=== PATIENT | female | born 1955 | race Caucasian/White ===

== ENCOUNTER 2017-04-24 13:35 | Day surgery (SDC) | payer BC ==
[~2017-04-24] VITALS: Ht 160 cm; Wt 92.4 kg
[2017-04-24 14:34] VITALS: Ht 160 cm; Wt 92.4 kg
[2017-04-24] MEDS ORDERED: LIDOCAINE 2% (SDV) 5 ML INJ ONE (14:39)
[2017-04-24] MEDS ORDERED: PHENYLephrine (100 MCG/ML) 5ML SYG ONE (14:39)
[2017-04-24] MEDS ORDERED: FENTAnyl 50 MCG/ML VIAL ONE (14:39)
[2017-04-24] MEDS ORDERED: PROPOFOL 20 ML ONE (14:39)
[2017-04-24] MEDS ORDERED: LANS15CA19 PO (14:44)
[2017-04-24] MEDS ORDERED: SIMV10TA PO (14:44)
[2017-04-24] MEDS ORDERED: LISI20TA11 PO (14:44)
[2017-04-24] MEDS ORDERED: ASPI-664 PO (14:44)
[2017-04-24 14:57] VITALS: BP 149/73; PULSE 76; RESP 10
[2017-04-24 16:02] VITALS: BP 167/79; RESP 20
--- NOTE | 2017-05-22 08:22 | GILP ---
DATE OF PROCEDURE: 05/11/2017 PROCEDURE PERFORMED: 1. Esophagogastroduodenoscopy and biopsy. 2. Colonoscopy and polypectomy. SURGEON: Og Tony MD PREOP DIAGNOSES: 1. Gastroesophageal reflux disease. 2. Screening colonoscopy. POSTOP DIAGNOSES: 1. Gastroesophageal reflux disease. 2. Gastritis. 3. Gastric mucosal biopsies were taken for H. pylori tests. 4. Colonoscopy all the way to the cecum. 5. Sigmoid colon polyp was removed using the snare and electrocautery. 6. Cecal polyp was removed using the biopsy forceps. 7. Internal hemorrhoids. INDICATIONS FOR THE PROCEDURES: Ms. Nora Guerra is a 62-year- old female patient who has chronic heartburn not responding to therapy. The patient also needed a screening colonoscopy. The procedures and possible complications were well explained to the patient. The patient understood and consented to the procedures. DESCRIPTION OF PROCEDURE: The gastroscope was carefully introduced into the esophagus under direct vision it was advanced to the stomach, through the pylorus into the duodenal bulb and descending duodenum. Findings esophagus: The patient had gastroesophageal reflux disease but the esophageal mucosa was normal. Stomach: The patient had gastritis. Gastric mucosal biopsies were taken for H pylori test. Duodenum was normal. The colonoscope was carefully introduced in the rectum. Under direct vision and advanced all the way to the cecum. Findings: The patient was noted to have a sigmoid colon polyp and it was removed using the snare and electrocautery. The patient also had a small cecal polyp and it was removed using the biopsy forceps. The patient was noted to have internal hemorrhoids. She tolerated the procedures very well. There was no complication from the procedures. At the end of procedures she was awake with stable vital signs and she was discharged home to the care of her family. IMPRESSION: 1. Gastritis with erosions. 2. Gastroesophageal reflux disease. 3. Gastric mucosal biopsies were taken for Helicobacter pylori test. 4. Colonoscopy all the way to the cecum. 5. Sigmoid colon polyp removed using the snare and electrocautery. 6. Cecal polyp was removed using the biopsy forceps. 7. Internal hemorrhoids. PLAN: 1. Nexium every 4 hours p.o. q.a.m. 2. Await histopathology reports. 3. Next screening colonoscopy in 5 years. Dictated By: MD LORNA Matias/allyn/susana /Document#: [id number]
== END 2017-04-24 15:56 | disposition home or self-care (01) ==
LOC: GIL 13:35
PROVIDERS: ATTEND Internal Medicine Gastroenterology
DX: Z12.11 Encounter for screening for malignant neoplasm of colon (principal); D12.0 Benign neoplasm of cecum; D12.5 Benign neoplasm of sigmoid colon; K21.9 Gastro-esophageal reflux disease without esophagitis; K29.70 Gastritis, unspecified, without bleeding; K64.8 Other hemorrhoids; I10 Essential (primary) hypertension; E78.5 Hyperlipidemia, unspecified; E66.9 Obesity, unspecified; Z68.36 Body mass index [BMI] 36.0-36.9, adult
CPT/HCPCS: 43239; 45380; 87081; 88305; J2370; J3010; Z7610